=== PATIENT | female | born 2000 | race Caucasian/White ===

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

== ENCOUNTER 2021-02-14 15:29 | Emergency (ER) | payer BC ==
[~2021-02-14] VITALS: Ht 160 cm; Wt 54.4 kg
[2021-02-14 15:38] VITALS: BP 107/72
[2021-02-14] MEDS ORDERED: AMOX500C2 PO (15:48)
--- NOTE | 2021-02-14 15:55 | NUR ---
Patient discharged to home in stable condition. Written and verbal after care instructions given. Patient verbalizes understanding of instruction. Pt ambulatory with a steady gait
[2021-02-14] MEDS ORDERED: AZIT1PAC PO (16:19)
== END 2021-02-14 16:22 | disposition home or self-care (01) ==
LOC: ER 15:36
DX: H66.93 Otitis media, unspecified, bilateral (principal); Z88.1 Allergy status to other antibiotic agents